=== PATIENT | female | born 2000 | race Two or more races ===

== ENCOUNTER 2022-11-11 13:10 | Emergency (ER) | payer OTHER ==
[~2022-11-11] VITALS: Ht 160 cm; Wt 85.3 kg
--- NOTE | 2022-11-11 13:53 | NUR ---
DR HOOKS AT BEDSIDE
--- NOTE | 2022-11-11 14:37 | NUR ---
URINE SAMPLE COLLECTED VIA STRAIGHT CATHETER. SENT TO LAB
[2022-11-11] MEDS ORDERED: IV NS 0.9% 1,000 ML BAG IV ONE (15:00)
[2022-11-11 15:54] LABS: BILIRUBIN,URINE NEGATIVE (NEGATIVE); COLOR,URINE YELLOW (YELLOW); LEUKOCYTE ESTERASE ,URINE NEGATIVE (NEGATIVE); NITRITE, URINE NEGATIVE (NEGATIVE); PROTEIN,URINE 2+ mg/dl (NEGATIVE); UGLUCOSE NEGATIVE (NEGATIVE); UROBILINOGEN,URINE 0.2 EU/dL (0.2)
[2022-11-11] MEDS ORDERED: NALO1DIS2 IM (17:39)
--- NOTE | 2022-11-11 18:31 | NUR ---
patient [id number], stable vital signs. ambulatory w/ steady gait. 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 d/c in stable condition. IV removed. Catheter intact and site benign. Pressure and 4x4 applied to site. No bleeding noted.
[2022-11-11 18:34] VITALS: BP 128/84
[2022-11-11 19:11] LABS: RBC,URINE 0-2 /HPF (0-2)
[2022-11-11 19:12] LABS: BACTERIA,URINE None seen /HPF (None Seen); SQUAMOUS EPITHELIAL CELL,UR Rare /HPF (None Seen); WBC,URINE 0-2 /HPF (0-3)
== END 2022-11-11 18:34 | disposition home or self-care (01) ==
LOC: ER 13:41
DX: F19.10 Other psychoactive substance abuse, uncomplicated (principal); F10.10 Alcohol abuse, uncomplicated; Z60.2 Problems related to living alone; F17.200 Nicotine dependence, unspecified, uncomplicated; Y92.89 Other specified places as the place of occurrence of the external cause
CPT/HCPCS: 99283; 96360; 84703; 81001; J7030